=== PATIENT | female | born 2000 ===

== ENCOUNTER 2019-03-07 10:40 | Emergency (ER) | payer SELFPAY ==
[2019-03-07 11:09] LABS: Urine Blood NEGATIVE (NEG); Urine Glucose NEGATIVE (NEG); Urine Protein NEGATIVE (NEG); Urine pH 6.5 (5.0-7.0)
[2019-03-07 12:25] LABS: Absolute Lymphocytes (CBC) 1.8 K/uL (0.7-4.9); Absolute Monocytes 0.6 K/uL (0.1-1.3); Basophils % 0.4 % (0-1.3); Eosinophils % 0.4 % (0-4.4); Hematocrit 39.1 % (36.0-45.0); Lymphocytes % 21.5 % (15.3-44.8); MPV 8.4 fL (7.6-11.3); Monocytes % 6.7 % (3.3-12.3); RBC Red Blood Cell Count 4.33 M/uL (3.86-4.86)
[2019-03-07 13:04] LABS: BUN Blood Urea Nitrogen 6 mg/dL (7-18); Bicarbonate 26 mmol/L (21-32); Glucose Level 87 mg/dL (74-106); HCG, Quantitative 96516 mIU/mL (1-3); Potassium 3.6 mmol/L (3.5-5.1); Sodium Level 135 mmol/L (136-145)
--- NOTE | 2019-03-07 13:59 | RAD REPORT ---
EXAM DESCRIPTION: US - Transvaginal Study Probe - 03/07/2019 1:48 pm CLINICAL HISTORY: Vaginal bleeding COMPARISON: none FINDINGS: The uterus measures 10 x 6 x 6cm. A gestational sac is present within the endometrium. Wit hin this is a yolk sac and pole with a crown-rump length 1.9 centimeters. Cardiac activity 161 beats per minute 2 centimeter subchorionic bleed Right ovary is normal in size and echotexture. Left ovary is enlarged and contains a 3.7 centimeters cyst. Blood flow is present within the left ovary. An adnexal mass is not noted. . No significant free fluid is seen. IMPRESSION: Single live into with an estimated gestational age 8 weeks 2 days KOKI 10/15/20 19 2 centimeters subchorionic bleed 3.6 centimeter left ovarian cyst
--- NOTE | 2019-03-07 14:05 | ER ---
Nurse's Notes [facility] Name: Sheila Shankar Age: 19 yrs Sex: Female : 2000 Arrival Date: 03/07/2019 Time: 10:44 Bed 18 Private MD: Diagnosis: Threatened ;Urinary tract infection, site not specified Presentation: 03/07 10:52 Presenting complaint: Patient states: Vaginal bleeding that started last nights, light sg flow with no clots, reports is but unsure of how far along, pt states that her lower abdomen hurts as well as her flank area, reports nausea. Transition of care: patient was not received from another setting of care. Onset of symptoms was March 07, 2019. Risk Assessment: Do you want to hurt yourself or someone else? Patient reports no desire to harm self or others. Initial Sepsis Screen: Does the patient meet any 2 criteria? No. Patient's initial sepsis screen is negative. Does the patient have a suspected source of infection? No. Patient's initial sepsis screen is negative. Care prior to arrival: None. 10:52 Method Of Arrival: Ambulatory sg 10:52 Acuity: IRINA 3 sg [facility] NURSE: 10:53 LMP 03/07/2019 sg 12:00 2, Living 1 [facility] Historical: - Allergies: 10:54 No Known Allergies; sg - Home Meds: 10:54 None [Active]; sg - PMHx: 10:54 None; sg - PSHx: 10:54 None; sg - Immunization history:: Adult Immunizations up to date. - Social history:: Smoking status: Patient/guardian denies using tobacco. - Ebola Screening: : Patient negative for fever greater than or equal to 101.5 degrees Fahrenheit, and additional compatible Ebola Virus Disease symptoms Patient denies exposure to infectious person Patient denies travel to an Ebola-affected area in the 21 days before illness onset No symptoms or risks identified at this time. Screenin:06 Abuse screen: Denies threats or abuse. Nutritional screening: No deficits noted. em Tuberculosis screening: No symptoms or risk factors identified. Fall Risk None identified. Assessment: 12:04 General: Appears in no apparent distress. comfortable, Behavior is calm, cooperative, em Denies fever. Pain: Complains of pain in right lower quadrant and left lower quadrant Pain currently is 7 out of 10 on a pain scale. Pain began 1 day ago. Neuro: Level of Consciousness is awake, alert, obeys commands, Oriented to person, place, time, situation, Denies dizziness. Cardiovascular: Capillary refill < 3 seconds Patient's skin is warm and dry. Respiratory: Airway is patent Respiratory effort is even, unlabored, Respiratory pattern is regular, symmetrical. GI: Abdomen is flat, Bowel sounds present X 4 quads. Abd is soft and non tender X 4 quads. Patient currently denies nausea, vomiting. : Reports vaginal bleeding that is bright red, light flow, Denies burning with urination, discharge. Derm: Skin is intact, is healthy with good turgor, Skin is pink, warm \T\ dry. Musculoskeletal: Capillary refill < 3 seconds, Range of motion: intact in all extremities. 12:15 Reassessment: I agree with previous assessment. hb 13:14 Reassessment: Patient appears in no apparent distress at this time. Patient and/or em family updated on plan of care and expected duration. Pain level reassessed. Patient is alert, oriented x 3, equal unlabored respirations, skin warm/dry/pink. 14:17 Reassessment: Patient appears in no apparent distress at this time. Patient and/or em family updated on plan of care and expected duration. Pain level reassessed. Patient is alert, oriented x 3, equal unlabored respirations, skin warm/dry/pink. Vital Signs: 10:53 BP 112 / 69; Pulse 88; Resp 14; Temp 97.2; Pulse Ox 100% on R/A; Weight 64.41 kg; Pain sg 0/10; 13:00 BP 114 / 78; Pulse 78; Resp 16; Pulse Ox 99% on R/A; em ED Course: 10:44 Patient arrived in ED. tw3 10:52 Arm band placed on. sg 10:53 Triage completed. sg 11:39 Shaq Ruiz PA is PHCP. [facility] 11:39 Henry Andre MD is Attending Physician. [facility] 12:03 Pj Mclean LVN is Primary Nurse. em 12:06 Patient has correct armband on for positive identification. Placed in gown. Bed in low em position. Call light in reach. Pulse ox on. NIBP on. 12:30 Initial lab(s) drawn, by me, sent to lab. Inserted saline lock: 22 gauge in right em antecubital area, using aseptic technique. Blood collected. 12:54 Radiology exam delayed due to test not completed at this time. hcg. sg3 13:48 US Transvaginal Study (Probe) In Process Unspecified. EDMS 14:19 No provider procedures requiring assistance completed. IV discontinued, intact, em bleeding controlled, No redness/swelling at site. Pressure dressing applied. Administered Medications: No medications were administered Outcome: 14:04 Discharge ordered by . joleen 14:21 Discharged to home ambulatory. em 14:21 Condition: good 14:21 Discharge instructions given to patient, Instructed on discharge instructions, follow up and referral plans. medication usage, Demonstrated understanding of instructions, follow-up care, medications, Prescriptions given X 1. 14:29 Patient left the ED. em Signatures: Dispatcher [employer] Karri Moore, AMARI RN sg Shaq Ruiz PA PA [facility] Pj Mclean, THERAPIST OCCUPATIONAL THERAPIST OCCUPATIONAL Nery Alcala, AMARI RN kasia Chiang, Mignon tw3 Bronwyn Salinas sg3
--- NOTE | 2019-03-07 14:05 | EDPHYS ---
Physician Documentation [facility] Name: Sheila Shankar Age: 19 yrs Sex: Female : 2000 Arrival Date: 03/07/2019 Time: 10:44 Bed 18 Private MD: ED Physician Henry Andre HPI: 03/07 12:00 This 19 yrs old Female presents to ER via Ambulatory with complaints of Vaginal jmm Bleeding, + Preg <12wks. 12:00 The patient presents to the emergency department with vaginal bleeding. jmm course: care: none. Patient complains of 1 episode of mild vaginal bleeding beginning last night with pelvic pain ongoing today. Denies vomiting or diarrhea. Complains of nausea. LMP 01/14/2019. TEACHER ASST: 10:53 LMP 03/07/2019 sg 12:00 2, Living 1 jmm Historical: - Allergies: 10:54 No Known Allergies; sg - Home Meds: 10:54 None [Active]; sg - PMHx: 10:54 None; sg - PSHx: 10:54 None; sg - Immunization history:: Adult Immunizations up to date. - Social history:: Smoking status: Patient/guardian denies using tobacco. - Ebola Screening: : Patient negative for fever greater than or equal to 101.5 degrees Fahrenheit, and additional compatible Ebola Virus Disease symptoms Patient denies exposure to infectious person Patient denies travel to an Ebola-affected area in the 21 days before illness onset No symptoms or risks identified at this time. ROS: 12:00 Constitutional: Negative for fever, chills, and weight loss, Cardiovascular: Negative jmm for chest pain, palpitations, and edema, Respiratory: Negative for shortness of breath, cough, wheezing, and pleuritic chest pain, Abdomen/GI: Negative for abdominal pain, nausea, vomiting, diarrhea, and constipation. 12:00 : Positive for vaginal bleeding. 12:00 All other systems are negative. Exam: 12:00 Constitutional: This is a well developed, well nourished patient who is awake, alert, jmm and in no acute distress. Head/Face: atraumatic. Eyes: EOMI, no conjunctival erythema appreciated ENT: Moist Mucus Membranes Neck: Trachea midline, Supple Chest/axilla: Normal chest wall appearance and motion. Cardiovascular: Regular rate and rhythm. No edema appreciated Respiratory: Normal respirations, no respiratory distress appreciated Abdomen/GI: Non distended, soft Back: Normal ROM Skin: General appearance color normal MS/ Extremity: Moves all extremities, no obvious deformities appreciated, no edema noted to the lower extremities Neuro: Awake and alert, normal gait Psych: Behavior is normal, Mood is normal, Patient is cooperative and pleasant 12:00 Abdomen/GI: Inspection: abdomen appears normal, Bowel sounds: normal, Palpation: soft, nontender, in all quadrants. Vital Signs: 10:53 BP 112 / 69; Pulse 88; Resp 14; Temp 97.2; Pulse Ox 100% on R/A; Weight 64.41 kg; Pain sg 0/10; 13:00 BP 114 / 78; Pulse 78; Resp 16; Pulse Ox 99% on R/A; em MDM: 12:00 Patient medically screened. [facility] 14:03 Data reviewed: vital signs, nurses notes. Counseling: I had a detailed discussion with [facility] the patient and/or guardian regarding: the historical points, exam findings, and any diagnostic results supporting the discharge/admit diagnosis, lab results, radiology results, the need for outpatient follow up, to return to the emergency department if symptoms worsen or persist or if there are any questions or concerns that arise at home. ED course: Patient advised to follow up with TEACHER ASST for reevaluation in 2 to 3 days. Patient is given return precautions. Patient understood and agrees with the plan of care. . 03/07 11:04 Order name: Urine Dipstick--Ancillary (enter results); Complete Time: 11:40 hb 03/07 11:04 Order name: Urine --Ancillary (enter results); Complete Time: 11:40 hb 03/07 12:04 Order name: Quantitative Hcg; Complete Time: 13:09 [facility] 03/07 12:04 Order name: Abo/rh Typing; Complete Time: 12:38 [facility] 03/07 12:04 Order name: Basic Metabolic Panel; Complete Time: 13:09 [facility] 03/07 12:04 Order name: CBC with Diff; Complete Time: 12:38 [facility] 03/07 12:04 Order name: IV Saline Lock; Complete Time: 12:20 [facility] 03/07 12:04 Order name: Labs collected and sent; Complete Time: 12:20 [facility] 03/07 12:04 Order name: NPO; Complete Time: 12:07 [facility] 03/07 12:04 Order name: Urine Dipstick-Ancillary (obtain specimen); Complete Time: 12:06 [facility] 03/07 12:04 Order name: US Transvaginal Study (Probe); Complete Time: 14:03 [facility] Administered Medications: No medications were administered Disposition: 15:39 Co-signature as Attending Physician, Henry Andre MD. Disposition: 03/07/19 14:04 Discharged to Home. Impression: Threatened , Urinary tract infection, site not specified. - Condition is Stable. - Discharge Instructions: Threatened Miscarriage, Subchorionic Hematoma, and Urinary Tract Infection. - Prescriptions for Cephalexin 500 mg Oral Capsule - take 1 capsule by ORAL route every 12 hours for 10 days; 20 capsule. - Medication Reconciliation Form, Thank You Letter, Antibiotic Education, Prescription Opioid Use form. - Follow up: Private Physician; When: 2 - 3 days; Reason: Recheck today's complaints, Continuance of care, Re-evaluation by your physician. Signatures: Dispatcher [employer] Karri Moore, RN RN Shaq Bowling, DUNCAN PA [facility] Pj Mclean, COMPUTER AIDED DRAFTER COMPUTER AIDED DRAFTER em Henry Andre MD MD Corrections: (The following items were deleted from the chart) 14:29 14:04 03/07/2019 14:04 Discharged to Home. Impression: Threatened ; Urinary em tract infection, site not specified. Condition is Stable. Forms are Medication Reconciliation Form, Thank You Letter, Antibiotic Education, Prescription Opioid Use. Follow up: Private Physician; When: 2 - 3 days; Reason: Recheck today's complaints, Continuance of care, Re-evaluation by your physician. [facility]
== END 2019-03-07 14:29 | disposition home or self-care (01) ==
LOC: ER 10:40
DX: O20.0 Threatened abortion (principal); O23.41 Unspecified infection of urinary tract in pregnancy, first trimester; Z3A.08 8 weeks gestation of pregnancy
CPT/HCPCS: 36415; 76830; 80048; 81003; 81025; 84702; 85025; 86900; 86901; 99284